=== PATIENT | male | born 1955 | race African-American/Black ===

== ENCOUNTER 2021-06-30 20:00 | Emergency (ER) | payer SELFPAY ==
[~2021-06-30] VITALS: Ht 172.7 cm; Wt 76.0 kg
[2021-06-30 20:21] VITALS: BP 192/110
== END 2021-06-30 21:29 | disposition left against medical advice (07) ==
LOC: ER 20:00
DX: Z53.21 Procedure and treatment not carried out due to patient leaving prior to being seen by health care provider (principal)